=== PATIENT | male | born 1965 | race Caucasian/White ===

== ENCOUNTER → 2019-04-17 | Outpatient (CLI) | payer OTHER ==
--- NOTE | 2019-04-17 11:29 | XR ---
EXAMINATION TYPE: XR wrist complete LT DATE OF EXAM: 04/17/2019 COMPARISON: NONE HISTORY: Pain TECHNIQUE: Four views submitted. FINDINGS: The osseous structures are intact. The joint spaces are preserved and there is no acute fracture or dislocation. IMPRESSION: 1. No definite acute fracture or dislocation if symptoms persist, follow-up study in 7 to 10 days wo uld be suggested
== END | disposition home or self-care (01) ==
LOC: RAD 10:47
PROVIDERS: ATTEND Emergency Medicine
DX: S63.502A Unspecified sprain of left wrist, initial encounter (principal)

== ENCOUNTER 2019-04-19 19:57 | Observation (INO) | payer BC ==
[2019-04-19] MEDS ORDERED: SODIUM CHLORIDE 0.9% 1,000 ML IV STA (20:16)
--- NOTE | 2019-04-19 20:36 | ED ---
General Adult HPI - General Chief complaint: Abdominal Pain Stated complaint: Abd pain Time Seen by Provider: 04/19/19 20:12 Source: patient Mode of arrival: ambulatory Limitations: no limitations - History of Present Illness Initial comments: Dictation was produced using [employer] dictation software. please excuse any grammatical, word or spelling errors. Chief Complaint: 53-year-old male presents with right lower quadrant abdominal pain. History of Present Illness: 53-year-old male presents with right lower quadrant abdominal pain. Patient reports that he was at [facility] today where they told him to come to the emergency department for concerns of bowel obstruction. Patient reports having bowel movements however he hasn't had a satisfying bowel movement since last week. He is passing gas. He has decreased appetite however no nausea or vomiting. He does complain of some right lower quadrant abdominal pain. No history of abdominal surgery. Denies any fever, chills or night sweats. Denies any genital pain. No urinary symptoms The ROS documented in this emergency department record has been reviewed and confirmed by me. Those systems with pertinent positive or negative responses have been documented in the HPI. All other systems are other negative and/or noncontributory. PHYSICAL EXAM: General Impression: Alert and oriented x3, not in acute distress HEENT: Normocephalic atraumatic, extra-ocular movements intact, pupils equal and reactive to light bilaterally, mucous membranes moist. Cardiovascular: Heart regular rate and rhythm, S1&S2 audible, no murmurs, rubs or gallops Chest: Lungs clear to auscultation bilaterally, no rhonchi, no wheeze, no rales Abdomen: There is some McBurney's point, negative rebound tenderness Musculoskeletal: Pulses present and equal in all extremities, no peripheral edema Motor: no focal deficits noted Neurological: CN II-XII grossly intact, no focal motor or sensory deficits noted Skin: Intact with no visualized rashes Psych: Normal affect and mood ED course: 53-year-old male presents with right lower quadrant pain. vital signs upon arrival are within acceptable limits. Laboratory evaluation obtained. Leukocytosis of 15.4, rest of CBC unremarkable. Coag panel is negative. Metabolic panel is grossly unremarkable. CT of the abdomen and pelvis was obtained showing acute appendicitis. There is incidental findings of multiple liver low-density foci which are likely cysts. Patient's notified of these incidental findings. Patient told that his acute appendicitis. Patient started on Zosyn. Patient will be nothing by mouth. Discussed patient case with Dr. Nichols who is willing to accept patients care. Patient will be maintained nothing by mouth this time to surgical scheduling can be confirmed. - Related Data Previous Rx's Medication Instructions Recorded HYDROmorphone [Dilaudid] 2 mg PO Q6H PRN #20 tab 10/10/14 SILVER sulfADIAZINE Cream 1 applic TOPICAL BID #100 cream..g. 10/10/14 [Silvadene 1% Cream] Allergies Allergy/AdvReac Type Severity Reaction Status Date / Time No Known Allergies Allergy Verified 04/19/19 20:15 Review of Systems ROS Statement: Those systems with pertinent positive or pertinent negative responses have been documented in the HPI. ROS Other: All systems not noted in ROS Statement are negative. Past Medical History Past Medical History: GERD/Reflux History of Any Multi-Drug Resistant Organisms: None Reported Past Surgical History: Orthopedic Surgery Additional Past Surgical History / Comment(s): left shoulder, left hand Past Psychological History: No Psychological Hx Reported Smoking Status: Never smoker Past Alcohol Use History: Occasional Past Drug Use History: None Reported General Exam Limitations: no limitations Course Vital Signs 04/19/19 20:12 Temperature 98 F Pulse Rate 86 Respiratory 18 Rate Blood Pressure 149/92 O2 Sat by Pulse 98 Oximetry Medical Decision Making - Lab Data Result diagrams: 04/19/19 20:29 04/19/19 20:29 Lab Results 04/19/19 04/19/19 04/19/19 Range/Units 20:29 20:29 20:29 WBC 15.4 H (3.8-10.6) k/uL RBC 5.18 (4.30-5.90) m/uL Hgb 16.3 (13.0-17.5) gm/dL Hct 48.8 (39.0-53.0) % MCV 94.2 (80.0-100.0) fL MCH 31.4 (25.0-35.0) pg MCHC 33.4 (31.0-37.0) g/dL RDW 12.0 (11.5-15.5) % Plt Count 401 (150-450) k/uL Neutrophils % 81 % Lymphocytes % 10 % Monocytes % 6 % Eosinophils % 1 % Basophils % 1 % Neutrophils # 12.5 H (1.3-7.7) k/uL Lymphocytes # 1.5 (1.0-4.8) k/uL Monocytes # 0.9 (0-1.0) k/uL Eosinophils # 0.1 (0-0.7) k/uL Basophils # 0.1 (0-0.2) k/uL PT (9.0-12.0) sec INR (<1.2) APTT (22.0-30.0) sec Sodium 138 (137-145) mmol/L Potassium 4.5 (3.5-5.1) mmol/L Chloride 104 (98-107) mmol/L Carbon Dioxide 21 L (22-30) mmol/L Anion Gap 13 mmol/L BUN 20 (9-20) mg/dL Creatinine 0.92 (0.66-1.25) mg/dL Est GFR (CKD-EPI)AfAm >90 (>60 ml/min/1.73 sqM) Est GFR (CKD-EPI)NonAf >90 (>60 ml/min/1.73 sqM) Glucose 106 H (74-99) mg/dL Plasma Lactic Acid Korey 1.2 (0.7-2.0) mmol/L Calcium 9.8 (8.4-10.2) mg/dL Total Bilirubin 0.9 (0.2-1.3) mg/dL AST 27 (17-59) U/L ALT 27 (4-49) U/L Alkaline Phosphatase 77 (38-126) U/L Total Protein 8.1 (6.3-8.2) g/dL Albumin 4.8 (3.5-5.0) g/dL Lipase 234 (23-300) U/L 04/19/19 Range/Units 20:29 WBC (3.8-10.6) k/uL RBC (4.30-5.90) m/uL Hgb (13.0-17.5) gm/dL Hct (39.0-53.0) % MCV (80.0-100.0) fL MCH (25.0-35.0) pg MCHC (31.0-37.0) g/dL RDW (11.5-15.5) % Plt Count (150-450) k/uL Neutrophils % % Lymphocytes % % Monocytes % % Eosinophils % % Basophils % % Neutrophils # (1.3-7.7) k/uL Lymphocytes # (1.0-4.8) k/uL Monocytes # (0-1.0) k/uL Eosinophils # (0-0.7) k/uL Basophils # (0-0.2) k/uL PT 11.0 (9.0-12.0) sec INR 1.1 (<1.2) APTT 24.8 (22.0-30.0) sec Sodium (137-145) mmol/L Potassium (3.5-5.1) mmol/L Chloride (98-107) mmol/L Carbon Dioxide (22-30) mmol/L Anion Gap mmol/L BUN (9-20) mg/dL Creatinine (0.66-1.25) mg/dL Est GFR (CKD-EPI)AfAm (>60 ml/min/1.73 sqM) Est GFR (CKD-EPI)NonAf (>60 ml/min/1.73 sqM) Glucose (74-99) mg/dL Plasma Lactic Acid Korey (0.7-2.0) mmol/L Calcium (8.4-10.2) mg/dL Total Bilirubin (0.2-1.3) mg/dL AST (17-59) U/L ALT (4-49) U/L Alkaline Phosphatase (38-126) U/L Total Protein (6.3-8.2) g/dL Albumin (3.5-5.0) g/dL Lipase (23-300) U/L Disposition Clinical Impression: Appendicitis Disposition: ADMITTED IP TO THIS [facility] Condition: Fair Referrals: Clinton Sal MD [Primary Care Provider] - 1-2 days Decision Time: 21:16
[2019-04-19 20:39] LABS: Basophils # (A) 0.1 k/uL (0-0.2); Basophils % (A) 1 %; Eosinophils # (A) 0.1 k/uL (0-0.7); Eosinophils % (A) 1 %; HCT 48.8 % (39.0-53.0); HGB 16.3 gm/dL (13.0-17.5); Lymphocytes # (A) 1.5 k/uL (1.0-4.8); Lymphocytes % (A) 10 %; MCH 31.4 pg (25.0-35.0); MCHC 33.4 g/dL (31.0-37.0); MCV 94.2 fL (80.0-100.0); Mean Platelet Volume 6.8; Monocytes # (A) 0.9 k/uL (0-1.0); Monocytes % (A) 6 %; Neutrophils # (A) 12.5 k/uL (1.3-7.7); Neutrophils % (A) 81 %; Platelet Count 401 k/uL (150-450); RBC 5.18 m/uL (4.30-5.90); WBC 15.4 k/uL (3.8-10.6)
[2019-04-19 20:50] LABS: INR 1.1 (<1.2); Partial Thromboplastin Time 24.8 sec (22.0-30.0)
[2019-04-19 20:51] LABS: ALT 27 U/L (4-49); AST 27 U/L (17-59); African American GFR (CKD) >90 (>60 ml/min/1.73 sqM); Albumin 4.8 g/dL (3.5-5.0); Alkaline Phosphatase 77 U/L (38-126); Anion Gap 13 mmol/L; Blood Urea Nitrogen 20 mg/dL (9-20); Calcium 9.8 mg/dL (8.4-10.2); Carbon Dioxide 21 mmol/L (22-30); Chloride 104 mmol/L (98-107); Glucose 106 mg/dL (74-99); Non-African American GFR(CKD) >90 (>60 ml/min/1.73 sqM); Potassium 4.5 mmol/L (3.5-5.1); Sodium 138 mmol/L (137-145); Total Bilirubin 0.9 mg/dL (0.2-1.3); Total Protein 8.1 g/dL (6.3-8.2)
--- NOTE | 2019-04-19 21:08 | CT ---
EXAMINATION TYPE: CT abdomen pelvis w con DATE OF EXAM: 04/19/2019 COMPARISON: HISTORY: RLQ pain CT DLP: 968.9 mGycm Automated exposure control for dose reduction was used. TECHNIQUE: Helical acquisition of images from the lung bases through the pelvis have been completed. CONTRAST: Performed without Oral Contrast and with IV Contrast, patient injected with 100 mL of Isovue 300. FINDINGS: LUNG BASES: No significant abnormality is appreciated. AORTA: No significant abnormality is appreciated. LIVER/GB: Multiple low dense foci within the liver likely represent cysts. Largest in the right lobe measures 3.6 cm. Gallbladder is unremarkable. PANCREAS: No significant abnormality is seen. SPLEEN: No significant abnormality is seen. ADRENALS: No significant abnormality is seen. KIDNEYS: No significant abnormality is seen. REPRODUCTIVE ORGANS: No significant abnormality is seen BOWEL: The appendix shows abnormal luminal high density proximally, the appendix is thickened. Peria ppendiceal inflammatory changes present within the fat. FREE AIR: No Free Air visible. ASCITES: None visible. PELVIC ADENOPATHY: None visualized. RETROPERITONEAL ADENOPATHY: No Retroperitoneal Adenopathy visible. URINARY BLADDER: No significant abnormality is seen. OSSEOUS STRUCTURES: No significant abnormality is seen. IMPRESSION: ACUTE APPENDICITIS.
[2019-04-19] MEDS ORDERED: PIPERACILLIN-TAZOBACTAM 3.375 GM in SODIUM CHLORIDE 0.9% 100 ML IVPB STA (21:13)
[2019-04-19] MEDS ORDERED: ONDANSETRON 4 MG/2 ML VIAL IVP PRN (21:17)
[2019-04-19] MEDS ORDERED: MORPHINE SULFATE 4 MG/ML SYRINGE IV PRN (21:17)
[2019-04-19] MEDS ORDERED: NALOXONE 0.4 MG/ML 1 ML VIAL IV PRN (21:17)
[2019-04-19] MEDS ORDERED: ACETAMINOPHEN TAB 325 MG TAB PO PRN (21:17)
[2019-04-19] MEDS: SODIUM CHLORIDE 0.9% 1,000 ML IV SCH (21:32)
--- NOTE | 2019-04-19 23:22 | P.GSHP ---
History of Present Illness H&P Date: 04/19/19 Chief Complaint: Appendicitis The patient is a 53-year-old man who began having abdominal pain this morning. It got worse so he went to the urgent care clinic and was sent to the ER to rule out appendicitis. He's had loss of appetite without nausea or vomiting no fevers or chills. No prior abdominal surgeries. No diarrhea. No blood in the stool or dark tarry stool - Review of Systems All systems: negative Past Medical History Past Medical History: GERD/Reflux History of Any Multi-Drug Resistant Organisms: None Reported Past Surgical History: Orthopedic Surgery Additional Past Surgical History / Comment(s): left shoulder, left hand Past Psychological History: No Psychological Hx Reported Smoking Status: Never smoker Past Alcohol Use History: Occasional Past Drug Use History: None Reported Medications and Allergies Home Medications Medication Instructions Recorded Confirmed Type Omeprazole Magnesium [PriLOSEC OTC] 20 mg PO DAILY 04/19/19 04/19/19 History Allergies Allergy/AdvReac Type Severity Reaction Status Date / Time No Known Allergies Allergy Verified 04/19/19 21:33 Surgical - Exam Osteopathic Statement: *. No significant issues noted on an osteopathic structural exam other than those noted in the History and Physical/Consult. Vital Signs Temp Pulse Resp BP Pulse Ox 98 F 86 18 149/92 98 04/19/19 20:12 04/19/19 20:12 04/19/19 20:12 04/19/19 20:12 04/19/19 20:12 - General Slightly sedated from pain medication well developed, well nourished, no distress - Eyes normal ocular movement - ENT normal mucosa - Neck trachea midline - Respiratory normal expansion, normal respiratory effort, clear to auscultation - Cardiovascular Rhythm: regular - Abdomen Abdomen: soft, tender (Right lower quadrant), bowel sounds (Hypoactive) Hernia: no umbilical Results - Labs 04/19/19 20:29 04/19/19 20:29 Abnormal Lab Results - Last 24 Hours (Table) 04/19/19 04/19/19 Range/Units 20:29 20:29 WBC 15.4 H (3.8-10.6) k/uL Neutrophils # 12.5 H (1.3-7.7) k/uL Carbon Dioxide 21 L (22-30) mmol/L Glucose 106 H (74-99) mg/dL Diabetes panel 04/19/19 Range/Units 20:29 Sodium 138 (137-145) mmol/L Potassium 4.5 (3.5-5.1) mmol/L Chloride 104 (98-107) mmol/L Carbon Dioxide 21 L (22-30) mmol/L BUN 20 (9-20) mg/dL Creatinine 0.92 (0.66-1.25) mg/dL Glucose 106 H (74-99) mg/dL Calcium 9.8 (8.4-10.2) mg/dL AST 27 (17-59) U/L ALT 27 (4-49) U/L Alkaline Phosphatase 77 (38-126) U/L Total Protein 8.1 (6.3-8.2) g/dL Albumin 4.8 (3.5-5.0) g/dL Calcium panel 04/19/19 Range/Units 20:29 Calcium 9.8 (8.4-10.2) mg/dL Albumin 4.8 (3.5-5.0) g/dL Pituitary panel 04/19/19 Range/Units 20:29 Sodium 138 (137-145) mmol/L Potassium 4.5 (3.5-5.1) mmol/L Chloride 104 (98-107) mmol/L Carbon Dioxide 21 L (22-30) mmol/L BUN 20 (9-20) mg/dL Creatinine 0.92 (0.66-1.25) mg/dL Glucose 106 H (74-99) mg/dL Calcium 9.8 (8.4-10.2) mg/dL Adrenal panel 04/19/19 Range/Units 20:29 Sodium 138 (137-145) mmol/L Potassium 4.5 (3.5-5.1) mmol/L Chloride 104 (98-107) mmol/L Carbon Dioxide 21 L (22-30) mmol/L BUN 20 (9-20) mg/dL Creatinine 0.92 (0.66-1.25) mg/dL Glucose 106 H (74-99) mg/dL Calcium 9.8 (8.4-10.2) mg/dL Total Bilirubin 0.9 (0.2-1.3) mg/dL AST 27 (17-59) U/L ALT 27 (4-49) U/L Alkaline Phosphatase 77 (38-126) U/L Total Protein 8.1 (6.3-8.2) g/dL Albumin 4.8 (3.5-5.0) g/dL - Imaging CT scan - abdomen: report reviewed, image reviewed Assessment and Plan (1) Appendicitis Current Visit: Yes Status: Acute Code(s): K37 - UNSPECIFIED APPENDICITIS SNOMED Code(s): 17306619 Plan: Laparoscopic appendectomy possible open. The procedure, risks, complications and usual postoperative course were discussed with he and his . Questions were encouraged and answered. He'll be given IV antibiotics along with DVT and ulcer prophylaxis. Further recommendations to follow.
[2019-04-19] MEDS ORDERED: ONDANSETRON 4 MG/2 ML VIAL ONE (23:35)
[2019-04-19] MEDS ORDERED: GLYCOPYRROLATE 0.2 MG/ML 2 ML VIAL ONE (23:35)
[2019-04-19] MEDS ORDERED: SUCCINYLCHOLINE CHLORIDE 100 MG/5 ML SYR IV ONE (23:35)
[2019-04-19] MEDS ORDERED: MIDAZOLAM 2 MG/2 ML VIAL ONE (23:35)
[2019-04-19] MEDS ORDERED: fentaNYL (PF) 50 MCG/ML 2 ML AMP ONE (23:35)
[2019-04-19] MEDS ORDERED: PROPOFOL 10 MG/ML 20 ML VIAL IV ONE (23:35)
[2019-04-19] MEDS ORDERED: LIDOCAINE 1% INJ 10MG/ML (20 ML MDV) ONE (23:35)
[2019-04-19] MEDS ORDERED: ROCURONIUM BROMIDE 10 MG/ML 10 ML VIAL IV ONE (23:35)
[2019-04-19] MEDS ORDERED: NEOSTIGMINE 1 MG/ML 10 ML VIAL ONE (23:35)
[2019-04-20] MEDS ORDERED: BUPIVACAINE (PF) 0.25% 30 ML VIAL SQ ONE ×2 (00:06)
[2019-04-20] MEDS ORDERED: LIDOCAINE 1%-EPI 1:100,000 20 ML VIAL SQ ONE ×2 (00:07)
[2019-04-20] MEDS ORDERED: IV FLUID CONTINUATION 1,000 ML IV ONE (00:08)
[2019-04-20] MEDS ORDERED: LACTATED RINGERS 1,000 ML IV ONE (00:27)
[2019-04-20] MEDS ORDERED: HYDROcodone/APAP 5-325MG 1 EACH TAB PO PRN ×2 (00:34)
--- NOTE | 2019-04-20 00:34 | P.OP ---
Date of Procedure: 04/20/19 Preoperative Diagnosis: Acute appendicitis Postoperative Diagnosis: Acute appendicitis Procedure(s) Performed: Laparoscopic appendectomy Anesthesia: KIMMY Surgeon: Teresa Nichols Pathology: other (Appendix) Condition: stable Disposition: PACU Indications for Procedure: The patient presented with acute abdominal pain CT was suggestive of acute appendicitis Description of Procedure: The patient's taken the operative suite where he is prepped and draped in the usual sterile manner under general endotracheal anesthetic. An infraumbilical incision was made and a Veress needle was placed into the abdominal cavity. Pneumoperitoneum was established with CO2 gas. Sites are chosen for accessory trochars and these are placed through small skin incisions. The abdominal and pelvic contents were examined. There is some inflammatory fluid along the right paracolic gutter. The appendix is a acutely inflamed. The mesentery of the appendix is taken down with harmonic scissors down to the base. The base of the appendix was pink and viable. It was secured with 0 PDS Endoloops 2. It was then transected and placed into a specimen retrieval bag. The paracolic gutter and appendiceal stump were irrigated noted be hemostatic. The excess irrigant was suctioned out. The pneumoperitoneum was released. The trochars were removed. The fascia at the umbilicus was closed over Vicryl. The skin incisions were closed with 4-0 Vicryl in a subcuticular manner. Steri-Strips and dressings were applied. He tolerated the procedure without difficulty and was taken to recovery room in satisfactory condition. According to or personnel, all counts were correct.
[2019-04-20] MEDS ORDERED: D5-0.45% NACL WITH KCL 20MEQ/L 1,000 ML IV SCH (00:45)
[2019-04-20] MEDS: KETOROLAC 30 MG/ML 1 ML VIAL IVP SCH ×3 (01:51→13:14)
[2019-04-20] MEDS: SODIUM CHLORIDE 0.9% 1,000 ML IV SCH (04:36)
[2019-04-20] MEDS: PIPERACILLIN-TAZOBACTAM 3.375 GM in SODIUM CHLORIDE 0.9% 100 ML IVPB SCH ×2 (05:10→13:14)
[2019-04-20] MEDS ORDERED: FAMOTIDINE 20 MG TAB PO SCH (09:00)
[2019-04-20 11:29] LABS: HCT 40.3 % (39.0-53.0); HGB 13.8 gm/dL (13.0-17.5); MCH 32.9 pg (25.0-35.0); MCHC 34.2 g/dL (31.0-37.0); MCV 96.1 fL (80.0-100.0); Mean Platelet Volume 6.9; Platelet Count 296 k/uL (150-450); RBC 4.19 m/uL (4.30-5.90); RDW 12.1 % (11.5-15.5); WBC 11.1 k/uL (3.8-10.6)
--- NOTE | 2019-04-20 12:33 | P.DS ---
Providers Date of admission: 04/19/19 21:17 Expected date of discharge: 04/20/19 Attending physician: Teresa Nichols Primary care physician: Clinton Sal - Discharge Diagnosis(es) (1) Appendicitis Current Visit: Yes Status: Acute Hospital Course: The patient presented with abdominal pain. Workup in the ER showed acute appendicitis. He was taken to the OR where he underwent a laparoscopic appendectomy. He was given prophylactic antibiotics. Postop day 1 he was felt to be stable for discharge. Procedures: Laparoscopic appendectomy Patient Condition at Discharge: Good Plan - Discharge Summary Discharge Rx Participant: Yes New Discharge Prescriptions: New traMADol HCL 50 - 100 mg PO Q6HR PRN #20 tablet PRN Reason: Pain Ciprofloxacin HCl [Cipro] 500 mg PO BID 5 Days #10 tab No Action Omeprazole Magnesium [PriLOSEC OTC] 20 mg PO DAILY Discharge Medication List Omeprazole Magnesium [PriLOSEC OTC] 20 mg PO DAILY 04/19/19 [History] Ciprofloxacin HCl [Cipro] 500 mg PO BID 5 Days #10 tab 04/20/19 [Rx] traMADol HCL 50 - 100 mg PO Q6HR PRN #20 tablet 04/20/19 [Rx] Follow up Appointment(s)/Referral(s): Clinton Sal MD [Primary Care Provider] - 1-2 days Activity/Diet/Wound Care/Special Instructions: You may remove the bandaids Sunday and shower. No tub bath or soaking for 1 week. Tylenol or Motrin as needed for pain. No driving while taking pain medications. Expect some bruising near the bellybutton incision. Call if you develop fever greater than 101, nausea, vomiting, recurrent right lower quadrant pain or other concerns. Discharge Disposition: HOME SELF-CARE
[2019-04-20 15:03] VITALS: BP 122/66; PULSE 72; RESP 17; TEMP 98.5
== END 2019-04-20 17:30 | disposition home or self-care (01) ==
LOC: EC 19:57 → 4SSUR 21:17
PROVIDERS: ADMIT Surgery; ATTEND Surgery
DX: K35.80 Unspecified acute appendicitis (principal); K21.9 Gastro-esophageal reflux disease without esophagitis; Z79.899 Other long term (current) drug therapy
CPT/HCPCS: 44970; 96365; 96375; 99285; 36415; 88304; 80053; 83605; 83690; 85025; 85027; 85610; 85730; 74177; G0378 ×2; J2543 ×2; J2250; J2270; J2710; J2405; J2001; J3010; J1885; J0330; J2704; Q9967